=== PATIENT | female | born 1990 | race Caucasian/White ===

== ENCOUNTER → 2022-02-22 15:03 | Outpatient (BNVA) | payer OTHER, SELFPAY | PROVIDERS: Visit Provider Emergency Medicine | DX: S96.912A Strain of unspecified muscle and tendon at ankle and foot level, left foot, initial encounter (principal); X58.XXXA Exposure to other specified factors, initial encounter | CPT/HCPCS: 73630 ==

== ENCOUNTER → 2022-05-23 10:00 | Outpatient (BNVA) | payer OTHER, SELFPAY | PROVIDERS: Visit Provider Nurse Practitioner Women's Health | DX: Z01.419 Encounter for gynecological examination (general) (routine) without abnormal findings (principal); Z12.4 Encounter for screening for malignant neoplasm of cervix; E28.2 Polycystic ovarian syndrome | CPT/HCPCS: 87624 ==

== ENCOUNTER → 2022-08-31 19:25 | Outpatient (BNVA) | payer OTHER, SELFPAY | PROVIDERS: Visit Provider Emergency Medicine | DX: Z20.9 Contact with and (suspected) exposure to unspecified communicable disease (principal); W46.1XXA Contact with contaminated hypodermic needle, initial encounter | CPT/HCPCS: 86706; 86803; 87340; 87806 ==

== ENCOUNTER → 2024-10-01 10:08 | Outpatient (BNVA) | payer SELFPAY | PROVIDERS: Visit Provider Dermatology | DX: Z01.89 Encounter for other specified special examinations (principal) | CPT/HCPCS: 84443 ==